=== PATIENT | male | born 1965 | race Caucasian/White ===

== ENCOUNTER 2017-09-14 11:00 | Outpatient (RCR) | payer SELFPAY ==
--- NOTE | 2017-08-17 16:50 | HP.PTEVAL ---
Patient's Visit Information JORGE SANTORO is a 52 year old M referred to Physical Therapy by Kulwinder Castro with a diagnosis of S/P LEFT TOTAL HIP REVISION. LYTIC BONE LESION OF HIP.. Date of Evaluation: 08/17/17 Physical Therapist: Christina Zepeda - Visit Plan Frequency: 2-3x /Week Duration: 4-6 Weeks Plan: *ADHERE TO TOTAL HIP PRECAUTIONS* GAIT TRAINING. CORE STRENGTHEING. LLE ROM, STRETCHING AND STRENGTHENING TO HELP MEET SET GOALS. - Subjective Subjective: Diagnosis: S/P LEFT TOTAL HIP REVISION AUG 02 2017. LYTIC BONE LESION OF HIP. 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 MAILY TRAVELS BY MOTOR [employer]CLE. PARTICIPATION IN SPORTS WITH 25 YEAR OLD STUDENTS WELL. Disability: NO. Present symptoms: LEFT HIP AND THIGH ACHING INTO GROIN TOO. NO LOW BACK PAIN. NO RIGHT HIP PAIN. NO LEFT KNEE OR LEFT FOOT PAIN. NO NUMBNESS OR TINGLING. Present since: LEFT HIP STARTED BOTHERING HIM ABOUT A YEAR AGO. ORIGINAL LEFT THR WAS IN 1999. Pain Scale: Worst - 5/10 Least - 2/10. Currently: 05/05. Commenced as a result of: OLD PROSTHESIS WAS WORE OUT. PATHOLOGY DID NOT SHOW CANCER IN THE HIP AFTER REVISION. Symptoms at onset: LEFT HIP ACHING. Worse: LIFTING LEFT THIGH, WALKING, GETTING IN AND OUT OF VEHICLE AND WHEN I GET ACTIVE. Better: SITTING DOWN IN RECLINER. ADVIL. Disturbed sleep: YES. SLEEPING IN BED. Previous history/Previous treatment: Gait: HAS BEEN WALKING WITH STANDARD WALKER SINCE SURGERY. THE ONLY PLACE HE HAS TO WALK RIGHT NOW WHERE HE IS STAYING IS ON [address]. Accidents: NO. Unexplained weight loss: LOST ABOUT 20 LBS IN ABOUT A MONTH IN [place] DUE TO LYMPHOMA. Imaging: NO LEFT HIP IMAGING SINCE SURGERY. PMH/Recent major surgery: LYMPHOMA - DIAGNOSED MAY 2017. SPLEENECTOMY JUNE 09 2017 - LYMPHOMA WAS DIAGNOSED FROM THE PATHOLOGY OF THE SPLEENECTOMY. LEFT THR 1999, RIGHT THR 2001. RIGHT GREAT TOE ARTHRITIS. BAD HIPS REALLY RUN IN HIS MOTHERS FAMILY WITH LE JOINT REPLACEMENTS AT VERY YOUNG AGES. OTHER: LIVES IN [facility]. CURRENTLY STAYING IN A CABIN WITH [address] DRIVEWAY BECAUSE HIS HOME IS RENTED OUT. PATIENT REPORTS HE CAME HOME FROM [facility] IN APR 2017 VERY SICK THEN SPLEENECTOMY. NO CHEMO OR RADIATION PLANNED. CANCER SEEMED TO BE CONTAINED IN THE SPLEEN. AT THIS POINT THEY THINK HE IS CANCER FREE. LEAVING TO GO BACK TO [facility] SEPTEMBER 17 THEN WILL RETURN TO [place] PER[place]NTLY IN ABOUT YEAR. - Objective Sitting/Standing Posture: FAIR. Lordosis: REDUCED. Lateral shift: NO. Relevant shift: N/A. Other Observations: INDEP GAIT INTO PT WITH STANDARD WALKER WITH POOR TECHNIQUE. HIS BALANCE IS BETTER WITH THE WALKER BUT HE IS NOT USING IT PROPERLY AND IT IS TOO LOW. PATIENT IS VERBALIZING DECREASED PROPER POSTURE CONTROL AND HEP KNOWLEDGE. Motor deficit: RIGHT LE IS WFL WITH MMT'ING BUT HE HAS RIGHT HIP PAIN WITH SLR. LLE: HIP 2/5, KNEE EXT 3+/5, KNEE FLEX 4-/5, ANKLE DORSIFLEXION 5/5. Sensory deficit: DISTAL LEFT LAT THIGH HAS SOME TENDERNESS BUT LIGHT TOUCH SENSATION IS INTACT. ROM deficit: RIGHT LE WFL. DECREASED LEFT HIP ROM ALL PLANES. FULL LEFT KNEE EXTENSION BUT LIMITED LEFT KNEE FLEXION. LEFT ANKLE WFL. Core strength: POOR. Palpation: INCISION LOOKS GREAT WITHOUT ANY SIGNS OF INFECTION. MILD EDEMA. LEFT LATERAL HIP/THIGH TENDERNESS. - Goals Goal 1:: DECREASE C/O LEFT HIP/THIGH PAIN Goal Time Frame: 4-6 Weeks Goal 2:: INCREASE FUNCTIONAL ROM LEFT LE Goal Time Frame: 4-6 Weeks Goal 3:: INCREASE FUNCTIONAL STRENGTH OF CORE AND LEFT LLE Goal Time Frame: 4-6 Weeks Goal 4:: INDEP AND SAFE GAIT ON ALL SURFACES WITHOUT AD AND LEAST DEVIATIONS Goal Time Frame: 4-6 Weeks Goal 5:: INDEP HEP FOR CONTINUED IMPROVEMENT ONCE FORMAL PT CONCLUDES. Goal Time Frame: 4-6 Weeks - Rehabilitation Potential Rehabilitation Potential: Fair - Anticipated Interventions Patient/Client Instruction: Educate patient on: Condition, Plan of Care, Risk Factors, Benefits of Fitness Program For the Purpose of:: To improve self management Therapeutic Exercise to Include: Strength training, Body mechanics, Postural training, Flexibilty training, Gait and locomotor training, Passive ROM, Active ROM, Dynamic Lumbar Stabilization For the Purpose of:: To decrease pain, To increase ROM, To improve muscle performance and motor function, To increase tolerance to activity/condition/position, To improve ability of physical actions for home/community/work/leisure, To improve gait and locomotor functions Functional Training to Include: Gait training For the Purpose of:: To improve gait and locomotor functions Cryotherapy (ice pack, ice massage): Yes For the Purpose of:: To decrease pain, To decrease swelling/inflammation Thank you for the opportunity to evaluate your patient. For Medicare and Medicare HMO plans, please review the plan of care and approve it. It will need to be FAXED BACK to us at [phone] for Medicare purposes. Please let me know if there are questions or concerns regarding this plan of care. Physician Signature: Date:
--- NOTE | 2017-09-17 12:16 | HP.PTDCSUM ---
HP - PT D/C Summary It has been my pleasure to treat JORGE SANTORO under orders from Kulwinder Castro, for the diagnosis of S/P LEFT TOTAL HIP REVISION. LYTIC BONE LESION OF HIP. for a total of 9 visit(s). Discharge Date: Please see the following information for a summary of their discharge status. - Subjective Subjective: Most pain with completion of sit to stand. States he has to clench his glutes for ~15 secs before ambulation or he limps terribly. States he saw his surgeon Sunday who was pleased with progress and lifted hip precuations. Instructed to use pain as inhibiting factor for activities. States he's leaving for [facility] Sunday and won't be back for ~10 months. - Pain Left Hip Pain Intensity (Out of 10): 2 - Objective Objective/Function: Scheduling was off in that this is pt's last appt. Was able to complete LEFS I after Rx and inform supervising PT of this mistake. PT able to communicate with pt in this final visit. Reviewed HEP d/t reports of non-compliance. Working today on I program that pt can complete in [facility] as he will be there next ~10 months. Discussion of improved hip flexor length and glute strength to diminish limp and appropriate HEP exc to accomplish. Given blue and green TB for resistance with education on progressions as is appropriate. Occasional cues needed for appropriate stance and eccentric muscle control. Given paper at end of Rx for HEP - appreciative of this. - Goals Goal 1:: DECREASE C/O LEFT HIP/THIGH PAIN Goal 2:: INCREASE FUNCTIONAL ROM LEFT LE Goal 3:: INCREASE FUNCTIONAL STRENGTH OF CORE AND LEFT LLE Goal 4:: INDEP AND SAFE GAIT ON ALL SURFACES WITHOUT AD AND LEAST DEVIATIONS Goal 5:: INDEP HEP FOR CONTINUED IMPROVEMENT ONCE FORMAL PT CONCLUDES. - Plan Plan: pt to be d/c'd at this time to I HEP. - D/C Information If there are questions or concerns regarding this patient's physical therapy, please feel free to call me at [phone]. Thank you for the referral of this patient. Sincerely, Christina Zepeda
== END 2017-09-14 19:00 | disposition home or self-care (01) ==
LOC: PT 11:00
DX: M89.8X5 Other specified disorders of bone, thigh (principal); Z96.649 Presence of unspecified artificial hip joint
CPT/HCPCS: 97110; 97116; 97162

== ENCOUNTER 2022-11-21 09:05 | Day surgery (SDC) | payer SELFPAY ==
[2022-11-21] VITALS (7 sets, daily range): BP systolic 123–152; BP diastolic 74–95; PULSE 60–68; RESP 14–16; TEMP 36.6–37.2; O2SAT 95–98; BMI 31.3
[2022-11-21] MEDS: Lactated Ringers 1,000 ML 15 ML IV (09:34)
--- NOTE | 2022-11-21 10:08 | H&P.OPEN ---
HPI - General HPI Narrative JORGE SANTORO, is a 57 M who presents for colonoscopy. Patient has last colonoscopy in [facility] and was normal. He denies any abdominal pain or blood in the stool. He has no family history of colon cancer. [facility] Medical History (Updated 11/16/22 @ 15:37 by Sierra Cruz) B-cell lymphoma Benign prostatic hyperplasia without lower urinary tract symptoms Cancer Chronic allergic rhinitis HTN (hypertension) Prostatitis Wears glasses Home Medications fluticasone propionate 50 mcg/actuation nasal spray,suspension 2 spray intranasal BID PRN nasal congestion 10/30/22 [History Last Taken Unknown] Allergy/AdvReac Type Severity Reaction Status Date / Time amoxicillin Allergy Headache Verified 11/21/22 09:24 Penicillins Allergy Headache Verified 11/21/22 09:24 Surgical History (Updated 10/30/22 @ 12:42 by Alyse Parkinson) Hx of colonoscopy Hx of splenectomy Social History (Updated 10/30/22 @ 12:52 by Alyse Parkinson) household members: spouse current occupational status: employed current occupation: [employer] history of recent travel: Yes ([facility] 2017, 2021) out of country: Yes Smoking Status: Never smoker substance use type: does not use Past Medical/Surgical History Planned Operation Planned Operative Procedure/s: COLONOSCOPY Previous Hospitalizations/Surgeries HX Hospitalizations: No Any Problems With Anesthesia: No You/Your Family Experience Fever (Hyperthermia) With Anes: No Cholinesterase deficiency: No Cardiovascular Hx Hypertension: Yes Respiratory Hx Sleep Apnea: No Hx Respiratory Tract Infection/Cold (presently): No Do You Snore Loudly (louder than talking or can be heard): No Do You Often Feel Tired/ Fatigued/ Sleepy Dring Daytime?: No Has Anyone Observed You Stop Breathing During Sleep?: No Result (for STOP score): Negative Smoking Status: Never smoker Neurological Does patient have nerve stimulator: No Miscellaneous Recent Exposure to Contagious Disease: No Allergies amoxicillin Allergy (Verified 11/21/22 09:24) Headache Penicillins Allergy (Verified 11/21/22 09:24) Headache Discharge Is Pt Admitted From a Shelter, or a Half-Way: No Who Could Help: After D/C, Where Do you Plan to Go: Return Home Vital Signs Vital Signs Vital Signs: 11/21/22 09:30 11/21/22 09:30 Temperature 98.3 F Temperature Source Temporal Pulse Rate 68 Respiratory Rate 16 Respiratory Pattern Normal Blood Pressure 152/95 H Blood Pressure Mean 114 Blood Pressure Source Monitor Blood Pressure Position Semi-Fowlers Blood Pressure Location Left Arm Pulse Ox 98 Oxygen Delivery Method Room Air Weight Weight: 194 lb 0.108 oz Body Mass Index (BMI) 31.3 Physical Exam Const alert and oriented x3 HEENT normocephalic Eyes PERRL Resp normal respiratory effort and normal air movement Cardio regular rate and regular rhythm GI soft to palpation, non-tender and non-distended Extremity normal to inspection Assessment & Plan Assessment/Plan (1) Encounter for screening for malignant neoplasm of colon: PLAN: I explained endoscopy in detail to the patient. I explained the risks including but not limited to stroke or heart attack with anesthesia, perforation of the GI tract, bleeding, infection. I explained that any of these could necessitate further emergency surgery. The patient understands and all questions were answered sufficiently. The patient wishes to proceed with procedure. Shaheed Rios MD Pager: [facility] [address] [place] [address] [address] [place] [address] Office: Surgery Risks - Colonoscopy Risks Include but are not Limited To: Risks include but are not limited to: Bleeding, perforation requiring further surgery, inability to complete colonoscopy requiring barium enema.
--- NOTE | 2022-11-21 10:40 | OP.CCLET_ITS ---
11/21/2022 Riki Wan [address] [place] [address] [place] [address] Re : Colonoscopy procedure for Josh Ford Dear Dr. Wan This procedure was performed on Monday, November 21, 2022. My impressions and recommendations are as follows: Impressions : - The entire examined colon is normal on direct and retroflexion views. - No specimens collected. Recommendations : - Discharge patient to home. - Resume previous diet. - Continue present medications. - Repeat colonoscopy in 10 years for screening purposes. My findings are described in the full procedure note, which is enclosed. If I can be of further assistance, please feel free to contact me at Doctor phone number(s): , Work: . Sincerely, Shaheed Rios MD 11/21/2022 10:39:10 AM This report has been signed electronically.
--- NOTE | 2022-11-21 10:40 | OP.COLON_ITS ---
Patient Name: Josh Ford Procedure Date: 11/21/2022 10:13 AM Date of : 1965 Age: 57 Procedure: Colonoscopy Indications: Screening for colorectal malignant neoplasm Providers: Shaheed Rios MD Referring MD: Riki Wan Medicines: Monitored Anesthesia Care Patient Profile: This is a 57 year old male. Refer to note in patient chart for documentation of history and physical. Last Colonoscopy: 5 years ago. Complications: No immediate complications. Procedure: Pre-Anesthesia Assessment: - Prior to the procedure, a History and Physical was performed, and patient medications and allergies were reviewed. The patient's tolerance of previous anesthesia was also reviewed. The risks and benefits of the procedure and the sedation options and risks were discussed with the patient. All questions were answered, and informed consent was obtained. Prior Anticoagulants: The patient has taken no anticoagulant or antiplatelet agents. After reviewing the risks and benefits, the patient was deemed in satisfactory condition to undergo the procedure. After I obtained informed consent, the scope was passed under direct vision. Throughout the procedure, the patient's blood pressure, pulse, and oxygen saturations were monitored continuously. The Colonoscope was introduced through the anus and advanced to the cecum, identified by appendiceal orifice and ileocecal valve. The colonoscopy was performed without difficulty. The patient tolerated the procedure well. The quality of the bowel preparation was good. The ileocecal valve, appendiceal orifice, and rectum were photographed. Scope In: 10:23:20 AM Scope Withdrawal Time 0 hours 6 minutes 4 seconds Scope Out: 10:34:49 AM Total Procedure Duration Time 0 hours 11 minutes 29 seconds Findings: The entire examined colon appeared normal on direct and retroflexion views. Impression: - The entire examined colon is normal on direct and retroflexion views. - No specimens collected. Recommendation: - Discharge patient to home. - Resume previous diet. - Continue present medications. - Repeat colonoscopy in 10 years for screening purposes. Procedure Code(s): --- Professional --- 85446, Colonoscopy, flexible; diagnostic, including collection of specimen(s) by brushing or washing, when performed (separate procedure) Diagnosis Code(s): --- Professional --- Z12.11, Encounter for screening for malignant neoplasm of colon CPT copyright 2021 [employer]. All rights reserved. The codes documented in this report are preliminary and upon dispatcher bus and trolley review may be revised to meet current compliance requirements. Shaheed Rios MD 11/21/2022 10:39:10 AM This report has been signed electronically. Number of Addenda: 0 Note Initiated On: 11/21/2022 10:13 AM
== END 2022-11-21 11:34 | disposition home or self-care (01) ==
LOC: EN 09:08 → AC 09:12
PROVIDERS: PCP Family Medicine; Referring Provider Family Medicine; Visit Provider Surgery
PROC: 0DJD8ZZ Inspection of Lower Intestinal Tract, Via Natural or Artificial Opening Endoscopic (ICD-10-PCS; CPT 45378; principal; 2022-11-21 09:55)
DX: Z12.11 Encounter for screening for malignant neoplasm of colon (principal); I10 Essential (primary) hypertension
CPT/HCPCS: 45378; J7120; J2405